=== PATIENT | male | born 1955 | race Caucasian/White ===

== ENCOUNTER 2019-10-08 13:57 | Emergency (ER) | payer MEDICAID, OTHER ==
[~2019-10-08] VITALS: Ht 175.3 cm; Wt 77.1 kg
[2019-10-08] MEDS ORDERED: BLOOD PRESSURE MED (14:13)
[2019-10-08] MEDS ORDERED: ASPI81TA31 PO (14:13)
[2019-10-08] MEDS ORDERED: CHOLESTEROL MED (14:13)
--- NOTE | 2019-10-08 14:13 | NUR ---
pt ambulating with steady gait. A&O x4. c/o SOB x2 wks on and off thats aggravated with sudden change in temperature per pt. wheezing noted bilaterally. O2 sat at 98% on RA. patient is a smoker. denies any chest pain at this time. mucus membranes pinkl and moist. denies any / GI distress. speech clear and able to make needs known / follow commands. fall precautions implemented per protocol. bed low, s/r up x2.
--- NOTE | 2019-10-08 14:13 | NUR ---
ERMD at bedside for MSE
[2019-10-08] MEDS ORDERED: ALBUTEROL SULFATE 2.5 MG/3 ML NEBU ONE ×2 (14:30→15:02)
[2019-10-08] MEDS ORDERED: IPRATROPIUM BROMIDE 0.5 MG/2.5 ML NEBU ONE (14:30)
[2019-10-08] MEDS ORDERED: IPRATROPIUM BROMIDE 0.5 MG/2.5 ML NEBU NEB ONE (14:30)
[2019-10-08] MEDS ORDERED: ALBUTEROL SULFATE 2.5 MG/3 ML NEBU NEB ONE ×2 (14:30→15:00)
[2019-10-08 14:45] LABS: BASOPHILS # (AUTO) 0.1 K/uL (0.0-8.0); BASOPHILS % (AUTO) 1.1 % (0.0-2.0); EOSINOPHILS # (AUTO) 0.1 K/uL (0.0-0.7); EOSINOPHILS % (AUTO) 1.3 % (0.0-7.0); HEMATOCRIT 52.5 % (36.7-47.1); HEMOGLOBIN 17.7 g/dL (12.5-16.3); MEAN CORPUSCULAR HEMOGLOBIN 34.1 uug (23.8-33.4); MEAN CORPUSCULAR HGB CONC 34 g/dL (32.5-36.3); MEAN CORPUSCULAR VOLUME 100.9 fL (73.0-96.2); MONOCYTES # (AUTO) 0.6 K/uL (2.0-10.0); MONOCYTES % (AUTO) 9.4 % (0.0-11.0); NEUTROPHILS % (AUTO) 58.2 % (38.5-71.5); PLATELET COUNT (AUTO) 192 K/uL (152-348); RED BLOOD CELL COUNT(AUTO) 5.21 MIL/uL (4.06-5.63); WHITE BLOOD COUNT (AUTO) 6.8 K/uL (3.6-10.2)
[2019-10-08 14:51] LABS: POTASSIUM 4.6 mmol/L (3.5-5.1)
[2019-10-08] MEDS ORDERED: predniSONE 20 MG TABLET PO ONE (15:00)
[2019-10-08 15:03] LABS: BILIRUBIN,DIRECT 0.1 mg/dL (0.0-0.2); BILIRUBIN,TOTAL 0.3 mg/dL (0.2-1.0); TOTAL PROTEIN, SERUM 7.1 g/dL (6.4-8.2)
[2019-10-08] MEDS ORDERED: predniSONE 20 MG TABLET ONE (15:03)
[2019-10-08 15:21] VITALS: BP 126/70
--- NOTE | 2019-10-08 15:22 | NUR ---
Patient discharged to home in stable conditon. Written and verbal after care instructions given. Patient verbalizes understanding of instructions.
== END 2019-10-08 15:22 | disposition home or self-care (01) ==
LOC: EDBD 13:57 → ER 13:57
DX: J44.1 Chronic obstructive pulmonary disease with (acute) exacerbation (principal); F17.290 Nicotine dependence, other tobacco product, uncomplicated; I10 Essential (primary) hypertension; I25.10 Atherosclerotic heart disease of native coronary artery without angina pectoris; E78.00 Pure hypercholesterolemia, unspecified; Z79.82 Long term (current) use of aspirin; Z79.899 Other long term (current) drug therapy
CPT/HCPCS: 36415; 71045; 80048; 80076; 83880; 84484; 85025; 93005; 94640 ×2; 99284; 99406; J7512; 70030-TC; A4663; J3590

== ENCOUNTER 2020-04-12 13:59 | Emergency (ER) | payer MEDICAID ==
[~2020-04-12] VITALS: Ht 175.3 cm; Wt 77.1 kg
[~2020-04-12 13:59] MED LIST: ASPI81TA31 PO; BLOOD PRESSURE MED; CHOLESTEROL MED
--- NOTE | 2020-04-12 14:15 | NUR ---
PT PRESENTED TO ER IN STABLE CONDITION C/O CHEST PAIN AND SOB.PT STATES THE PAIN STARTED YESTERDAY WHEN HE FOUND OUT ABOUT PASSING OF HIS CLOSE FRIEND. PT IS A/OX3 ,ANXIOUS, NO NEURO DEFICIT NOTED. PT IS ON COORDINATOR OF PLACEMENT W/SINUS RHYTHM , NORMAL HR,BP W/IN NORMAL LIMITS.LUNG SOUNDS ARE CLEAR, C/O SOB. NO GI/ SYMPTOMS. PT IN BED , SIDE RAILS UP X2, FALL PRECAUTIONS IMPLEMENTED.
[2020-04-12] MEDS ORDERED: TOPI25TA49 PO (14:25)
[2020-04-12] MEDS ORDERED: ROSU20TA2 PO (14:25)
[2020-04-12] MEDS ORDERED: ASPIRIN 81 MG TAB.CHEW PO ONE (14:30)
[2020-04-12] MEDS ORDERED: ASPIRIN 81 MG TAB.CHEW ONE (14:30)
[2020-04-12 14:50] LABS: BASOPHILS # (AUTO) 0.1 K/uL (0.0-8.0); BASOPHILS % (AUTO) 0.9 % (0.0-2.0); EOSINOPHILS # (AUTO) 0.1 K/uL (0.0-0.7); EOSINOPHILS % (AUTO) 1.6 % (0.0-7.0); HEMATOCRIT 48.1 % (36.7-47.1); HEMOGLOBIN 16.2 g/dL (12.5-16.3); LYMPHOCYTES # (AUTO) 1.8 K/uL (20.0-40.0); LYMPHOCYTES % (AUTO) 25.3 % (20.5-51.5); MEAN CORPUSCULAR HEMOGLOBIN 33.2 uug (23.8-33.4); MEAN CORPUSCULAR HGB CONC 34 g/dL (32.5-36.3); MEAN CORPUSCULAR VOLUME 98.3 fL (73.0-96.2); MONOCYTES # (AUTO) 0.6 K/uL (2.0-10.0); MONOCYTES % (AUTO) 8.9 % (0.0-11.0); NEUTROPHILS # (AUTO) 4.5 K/uL (1.8-8.9); NEUTROPHILS % (AUTO) 63.3 % (38.5-71.5); PLATELET COUNT (AUTO) 188 K/uL (152-348); RED BLOOD CELL COUNT(AUTO) 4.89 MIL/uL (4.06-5.63); WHITE BLOOD COUNT (AUTO) 7.1 K/uL (3.6-10.2)
[2020-04-12 14:59] LABS: BILIRUBIN,DIRECT 0.1 mg/dL (0.0-0.2); BILIRUBIN,TOTAL 0.5 mg/dL (0.2-1.0); CREATININE 1.1 mg/dL (0.6-1.3); POTASSIUM 3.9 mmol/L (3.5-5.1); TOTAL PROTEIN, SERUM 7.1 g/dL (6.4-8.2)
--- NOTE | 2020-04-12 15:35 | NUR ---
Patient does not wish to proceed with medical care recommended by ER DOC. Patient given information related to possible complications, up to and including , which could occur as a result of leaving the hospital at this time. Patient verbalizes understanding of risks involved due to leaving against medical advice. Patient has signed AMA form.
[2020-04-12 16:19] VITALS: BP 135/89
== END 2020-04-12 16:22 | disposition left against medical advice (07) ==
LOC: ER 13:59
DX: R07.9 Chest pain, unspecified (principal); I25.10 Atherosclerotic heart disease of native coronary artery without angina pectoris; Z95.5 Presence of coronary angioplasty implant and graft; J44.9 Chronic obstructive pulmonary disease, unspecified; F41.9 Anxiety disorder, unspecified; F17.200 Nicotine dependence, unspecified, uncomplicated
CPT/HCPCS: 36415; 70030-TC; 71045; 85025; 93005; A4663

== ENCOUNTER 2022-02-25 11:26 | Emergency (ER) | payer MEDICARE, MEDICAID ==
[~2022-02-25] VITALS: Ht 175.3 cm; Wt 88.0 kg
[~2022-02-25 11:26] MED LIST changes: -BLOOD PRESSURE MED; -CHOLESTEROL MED; +ROSU20TA2 PO; +TOPI25TA49 PO
[2022-02-25] MEDS ORDERED: METO25TA3 PO (11:45)
[2022-02-25] MEDS ORDERED: ATOR20TA PO (11:45)
[2022-02-25] MEDS ORDERED: IPRATROPIUM BROMIDE 0.5 MG/2.5 ML NEBU NEB ONE (12:15)
[2022-02-25] MEDS ORDERED: ALBUTEROL SULFATE 2.5 MG/3 ML NEBU NEB ONE (12:15)
--- NOTE | 2022-02-25 12:15 | NUR ---
patient seen by Dr Calvillo. Orders placed and done
--- NOTE | 2022-02-25 12:15 | NUR ---
patient given breathing treatment by RT.
[2022-02-25] MEDS ORDERED: ALBUTEROL SULFATE 2.5 MG/3 ML NEBU ONE (12:23)
[2022-02-25] MEDS ORDERED: IPRATROPIUM BROMIDE 0.5 MG/2.5 ML NEBU ONE (12:24)
[2022-02-25 12:27] LABS: HEMATOCRIT 44.9 % (36.7-47.1); MEAN CORPUSCULAR HEMOGLOBIN 34.9 uug (23.8-33.4); MEAN CORPUSCULAR VOLUME 99.7 fL (73.0-96.2); PLATELET COUNT (AUTO) 145 K/uL (152-348)
[2022-02-25 12:30] LABS: CARBON DIOXIDE 30 mmol/L (21-32); CHLORIDE 100 mmol/L (98-107); CREATININE 0.9 mg/dL (0.6-1.3); GLUCOSE 114 mg/dL (74-106); POTASSIUM 4.3 mmol/L (3.5-5.1); UREA NITROGEN, BLOOD 14 mg/dL (7-18)
[2022-02-25 12:43] LABS: ALANINE AMINOTRANSFERASE 48 U/L (16-63); ALKALINE PHOSPHATASE 108 U/L (50-136); ASPARTATE AMINOTRANSFERASE 30 U/L (15-37); BILIRUBIN,DIRECT 0.1 mg/dL (0.0-0.2); BILIRUBIN,TOTAL 0.6 mg/dL (0.2-1.0); TOTAL PROTEIN, SERUM 6.9 g/dL (6.4-8.2)
[2022-02-25 14:08] LABS: *BILIRUBIN,URIN NEGATIVE (NEGATIVE); *BLOOD, URINE NEGATIVE (NEGATIVE); *CLARITY,URINE CLEAR (CLEAR); *COLOR,URINE YELLOW (YELLOW); *KETONES,URINE NEGATIVE (NEGATIVE); *UROBILINOGEN,URINE 0.2 E.U./dl (NORMAL); LEUKOCYTE ESTERASE ,URINE 1+ (NEGATIVE); NITRITE, URINE NEGATIVE (NEGATIVE); UGLUCOSE NEGATIVE (NEGATIVE)
--- NOTE | 2022-02-25 15:00 | NUR ---
spoke to patient regarding lab results and findings. will redo vitals and repeat EKG prior to plan for discharge
[2022-02-25] MEDS ORDERED: METOPROLOL SUCCINATE XL 25 MG TAB.SR.24H PO ONE ×2 (15:44→15:45)
--- NOTE | 2022-02-25 15:45 | NUR ---
discharge reports given a copy of all lab reports and radiology reports given. patient discharged at this time
[2022-02-25 15:58] VITALS: BP 162/87
[2022-02-25 19:12] LABS: BACTERIA,URINE NONE SEEN /HPF (NONE SEEN); RBC,URINE 0-3 /HPF (0-3); SQUAMOUS EPITHELIAL CELL,UR FEW /HPF (NONE SEEN)
== END 2022-02-25 16:00 | disposition home or self-care (01) ==
LOC: ER 11:36
DX: J44.1 Chronic obstructive pulmonary disease with (acute) exacerbation (principal); Z20.822 Contact with and (suspected) exposure to COVID-19; I25.2 Old myocardial infarction; Z95.5 Presence of coronary angioplasty implant and graft; I25.10 Atherosclerotic heart disease of native coronary artery without angina pectoris; I10 Essential (primary) hypertension; E78.00 Pure hypercholesterolemia, unspecified; R94.31 Abnormal electrocardiogram [ECG] [EKG]; Z82.49 Family history of ischemic heart disease and other diseases of the circulatory system; D69.6 Thrombocytopenia, unspecified; F17.200 Nicotine dependence, unspecified, uncomplicated
CPT/HCPCS: 36415; 71045; 83605; 84484; 85025; 85730; 87040; 87086; 93005; A4663; J3590